=== PATIENT | male | born 1970 | race Caucasian/White ===

== ENCOUNTER 2020-07-12 09:43 | Emergency (ER) | payer OTHER ==
[~2020-07-12] VITALS: Ht 193 cm; Wt 107.9 kg
--- NOTE | 2020-07-12 10:18 | NUR ---
PT SYMPTOMOLOGY AND TIMELINE REVIEWED WITH ADARSH ASHLEY AND ANNALISE PALMA, PER PROVIDERS, CODE NEURO NOT INDICATED.
--- NOTE | 2020-07-12 10:23 | NUR ---
PT TAKEN TO CT AT THIS TIME. PT A&O, RESPS EVEN AND UNLABORED.
--- NOTE | 2020-07-12 10:31 | NUR ---
PT BACK FROM CT, PT A&O, RESPS EVEN AND UNLABORED, VICKYN.
--- NOTE | 2020-07-12 10:41 | NUR ---
PT PRESENTS TO ED WITH C/O TRANSIENT AMNESIA ONSET APPROX 0800 THIS AM, STATES HE AWOKE NORMAL AT 0630. AROUND 8AM, PT STATES HE WAS READING WORK EMAILS AND HAD NO IDEA WHAT THEY WERE REFERRING TO, CALLED HIS WHO ASKED HIM SOME QUESTIONS, PT UNABLE TO RECALL IT WAS ELECTION DAY YESTERDAY. PT NOW STATES "IT'S MUCH BETTER NOW." UNABLE TO QUANITFY HOW LONG IT TOOK FOR SYMPTOMS TO RESOLVE. PT STATES HE HAD A SIMILAR EPISODE IN 2016, DIAGNOSED "GLOBAL AMNESIA." PT HAS HX AFIB, TAKING XARALTO FOR PROPHYLAXIS. PT IS A&OX4, RESPS EVEN AND UNLABORED. NO FOCAL NEURO DEFICITS, BILATERAL GRASP EQUAL, 5/5 STRENGTH TO ALL EXTREMITIES. PT DENIES N/T, DENIES VISION/HEARING CHANGES. PT PLACED ON ALL MONITORS, CALL LIGHT IN REACH. AWAITING CT RESULTS AND DISPO. AT BEDSIDE.
[2020-07-12 12:53] VITALS: BP 143/79
== END 2020-07-12 12:56 | disposition home or self-care (01) ==
LOC: ED 12:50
DX: I10 Essential (primary) hypertension (principal); G45.4 Transient global amnesia; F17.210 Nicotine dependence, cigarettes, uncomplicated; E78.5 Hyperlipidemia, unspecified; Z95.0 Presence of cardiac pacemaker
CPT/HCPCS: 70450; 99284

== ENCOUNTER → 2020-09-20 | Outpatient (CLI) | payer OTHER | END | disposition home or self-care (01) | LOC: CFH 10:47 | PROVIDERS: ATTEND Nurse Practitioner Family | DX: I35.8 Other nonrheumatic aortic valve disorders (principal); I10 Essential (primary) hypertension; Z95.0 Presence of cardiac pacemaker | CPT/HCPCS: 93306 ==

== ENCOUNTER → 2020-11-08 | Outpatient (CLI) | payer OTHER ==
[~2020-11-08] MED LIST: REGADENOSON 0.4 MG/5 ML SYRINGE ONE
== END | disposition home or self-care (01) ==
LOC: CFH 12:22
PROVIDERS: ATTEND Nurse Practitioner Family
DX: I48.91 Unspecified atrial fibrillation (principal); I42.9 Cardiomyopathy, unspecified
CPT/HCPCS: 78452; 93017; A9502; J2785